=== PATIENT | male | born 1930 | race Caucasian/White ===

== ENCOUNTER → 2018-06-12 | Outpatient (CLI) | payer MEDICARE, OTHER ==
--- NOTE | 2018-06-12 13:32 | PCVCIMAG ---
APPROVED REPORT Study performed: 06/12/2018 12:47:31 EXAM: Comprehensive 2D, Doppler, and color-flow Echocardiogram Patient Location: Echo lab Status: routine BSA: 2.05 HR: 79 bpmBP: 138/80 mmHg Rhythm: NSR Other Information Study Quality: Good Indications Syncope 2D Dimensions IVSd: 15.22 (7-11mm)LVOT Diam: 23.33 (18-24mm) LVDd: 38.02 mm PWd: 12.83 (7-11mm)Ascending Ao: 39.45 (22-36mm) LVDs: 32.22 (25-40mm) Left Atrium: 35.42 (27-40mm) Aortic Root: 33.27 mm LV Single Plane 4CH: 61.12 % LV Single Plane 2CH: 47.40 % Biplane EF: 56.9 % Volumes Left Atrial Volume (Systole) Single Plane 4CH: 52.66 mLSingle Plane 2CH: 58.40 mL LA ESV Index: 28.00 mL/m2 Aortic Valve AoV Peak Raul.: 1.27 m/s AO Peak Gr.: 6.44 mmHgLVOT Max P.55 mmHg LVOT Max V: 1.07 m/s ALDO Vmax: 3.59 cm2 AI Vmax: 3.54 m/s AI Yolo: 1.50 m/s2 AI PHT: 684.31 ms Mitral Valve E/A Ratio: 0.7 MV Decel. Time: 206.76 ms MV E Max Raul.: 0.74 m/s MV A Raul.: 0.99 m/s IVRT: 110.73 ms TDI E/Lateral E': 18.50E/Medial E': 14.80 Medial E' Raul.: 0.05 m/s Lateral E' Raul.: 0.04 m/s Pulmonary Valve PV Peak Gr.: 1.80 mmHg Pulmonary Vein P Vein S: 0.52 m/sP Vein A: 0.24 m/s P Vein D: 0.36 m/sP Vein A Dur.: 69.2 msec P Vein S/D Ratio: 1.44 Tricuspid Valve TR Peak Raul.: 2.44 m/s TR Peak Gr.: 23.88 mmHg Left Ventricle The left ventricle is normal size. There is normal LV segmental wall motion. Mild concentric left ventricular hypertrophy. Left ventricular systolic function is normal. The left ventricular ejection fraction is within the normal range. LVEF is 60-65%. The left ventricular diastolic function is normal. Right Ventricle The right ventricle is normal size. The right ventricular systolic function is normal. Atria The left atrium size is normal. The right atrium size is normal. Aortic Valve The aortic valve is normal in structure. Trace aortic regurgitation. There is no aortic valvular stenosis. Mitral Valve The mitral valve is normal in structure. Trace mitral regurgitation. No evidence of mitral valve stenosis. Tricuspid Valve The tricuspid valve is normal in structure. Trace tricuspid regurgitation. Pulmonary artery pressure is 31mmHg. Pulmonic Valve The pulmonary valve is normal in structure. Trace pulmonic regurgitation. Great Vessels The aortic root is normal in size. IVC is normal in size and collapses >50% with inspiration. Pericardium There is no pericardial effusion. <Conclusion> The left ventricle is normal size. LVEF is 60-65%. The aortic valve is normal in structure. Trace aortic regurgitation. The mitral valve is normal in structure. Trace mitral regurgitation. The tricuspid valve is normal in structure. Trace tricuspid regurgitation. Pulmonary artery pressure is 31mmHg. The pulmonary valve is normal in structure. Trace pulmonic regurgitation. There is no pericardial effusion.
== END | disposition home or self-care (01) ==
LOC: PCVCIMAG 12:40
PROVIDERS: ATTEND Family Medicine
DX: I51.7 Cardiomegaly (principal); E78.5 Hyperlipidemia, unspecified; M19.90 Unspecified osteoarthritis, unspecified site; Z79.82 Long term (current) use of aspirin; Z79.899 Other long term (current) drug therapy
CPT/HCPCS: 36415; 80061; 93005; 93306; G0463

== ENCOUNTER → 2018-07-17 | Outpatient (CLI) | payer MEDICARE, OTHER | END | disposition home or self-care (01) | LOC: PCVCCLINIC 10:03 | PROVIDERS: ATTEND Internal Medicine | DX: E78.5 Hyperlipidemia, unspecified (principal); Z79.82 Long term (current) use of aspirin | CPT/HCPCS: G0463 ==

== ENCOUNTER → 2018-07-26 | Outpatient (CLI) | payer MEDICARE, OTHER ==
[~2018-07-26] MED LIST: REGADENOSON 0.4 MG/5 ML DISP.SYRIN. IV ONE
--- NOTE | 2018-07-31 16:11 | PCVCIMAG ---
APPROVED REPORT Imaging Protocol: Rest Tc-99m/Stress Tc-99m 1 day Study performed: 07/26/2018 09:14:48 Indication: Syncope Patient Location: Out-Patient Stress Nurse: Cathi Ramos RN, Maricel Alvarenga RN [place] [employer]:Mary Stovertawanda [facility] Ht: 5 ft 10 in Wt: 168 lbs BSA: 1.94 m2 HR: 62 bpm BP: 179/86 mmHg BMI: 24.10 Rhythm: Normal Sinus Rhythm Medical History Medical History: Hyperlipidemia Medications: ASA, No cardiac medications Allergies: No known drug allergies Cardiac Risk Factors: Age Pretest Chest Pain Characteristics: No chest pain Exercise History: Physically active Resting Data Rest SPECT myocardial perfusion imaging was performed in supine position 45 minutes following the intravenous injection of 10.6 mCi of Tc-99m Sestamibi. Time of rest injection: 0845 Date: 07/26/2018 Administration Route: IV Administration Site: Right AC Pharmacologic Stress Pharmacologic stress test was performed by injecting Regadenoson 0.4 mg IV push over 10-15 seconds immediately followed by the intravenous injection of 34.3 mCi of Tc-99m Sestamibi. Time of stress injection: 1000 Date: 07/26/2018 Administration Route: IV Administration Site: Right AC Gated Stress SPECT was performed 45 minutes after stress injection. The images were gated to evaluate regional wall motion and calculate left ventricular ejection fraction. Stress Test Details Stress Test: Pharmacologic stress testing performed using 0.4 mg of regadenoson per 5 mL given IV over 10 seconds. Reason for pharmacologic stress test: Leg pain. HRMax Heart Rate (APMHR): 134 bpm Resting HR: 62 bpmTarget HR (85% APMHR): 113 bpm Max HR Achieved: 93 bpm % of APMHR: 69 Recovery HR: 82 bpm BP Resting BP: 179/86 mmHg Max BP: 176/92 mmHg Recovery BP: 155/77 mmHg ECG Resting ECG: Normal Sinus Rhythm Stress ECG: Sinus Rhythm Arrhythmia: None Recovery ECG: Sinus Rhythm Clinical Reason for Termination: Completed protocol Stress Symptoms: Dyspnea Exercise duration: 0 min 55 sec Symptoms resolved with caffeine. Stress ECG Conclusion 1. adequate response to iv lexiscan 2. inadequate heart rate for ecg diagnosis Study Data Post stress, the left ventricular ejection was 62%.. SSS: 0 SRS: 0 SDS: 0 TID = 1.23. Perfusion There is a small area of moderately reduced uptake in the mid and apical segment of the anteroseptal wall which is seen on the stress images and improves on the resting images. This area thickens and moves normally and is most consistent with small region of ischemia. Wall Motion Normal left ventricular wall motion. Nuclear Conclusion ECG Findings: non-diagnostic Clinical Findings: negative for ischemia Nuclear Findings: positive for ischemia small region Exercise Capacity: abnormal Left Ventricular Function: normal 1. intermediate risk study based on the presence of a small region of inducible ischemia involving the anteroseptal wall 2. post stress LVEF 62% without wall motion abnormalities <Conclusion> 1. adequate response to iv lexiscan 2. inadequate heart rate for ecg diagnosis
== END | disposition home or self-care (01) ==
LOC: PCVCIMAG 09:11
PROVIDERS: ATTEND Internal Medicine
DX: R55 Syncope and collapse (principal); E78.5 Hyperlipidemia, unspecified
CPT/HCPCS: 78452; 93017; A9500; J2785